=== PATIENT | male | born 1940 | race Caucasian/White ===

== ENCOUNTER → 2018-10-06 | Outpatient (CLI) | payer MEDICARE ==
--- NOTE | 2018-10-06 14:43 | XR ---
EXAMINATION TYPE: XR KUB DATE OF EXAM: 10/06/2018 HISTORY: Pain Comparison: 01/22/2016 Single KUB is submitted for interpretation. Findings: Right renal calculi: None Visualized. Overlying bowel content limits evaluation. Right ureteral calculi: None Visualized. Left renal calculi: Partial staghorn calculus lower pole left kidney measures 11.4 x 2.9 cm. Overlyi ng bowel content limits evaluation. Left ureteral calculi: None Visualized. Pelvic calcifications: None Visualized. Bowel gas pattern is unremarkable. No free air. No mass effects. IMPRESSION: 1. Large partial staghorn calculus lower pole left kidney measures 11.4 x 2.9 cm. Overall no signific ant change when compared to prior study.
--- NOTE | 2018-10-06 16:38 | US ---
EXAMINATION TYPE: US kidneys/renal and bladder DATE OF EXAM: 10/06/2018 COMPARISON: 01/08/2016 CLINICAL HISTORY: N20 Calculus of kidney. Post lithotripsy for left renal stone(s). EXAM MEASUREMENTS: Right Kidney: 10.1 x 6.3 x 4.9 cm Left Kidney: 11.2 x 5.8 x 5.9 cm Post Void Residual Volume: 43.9 mL Right Kidney: shadowing stone area in lower pole = 0.8 x 0.6 x .0.4cm; lateral simple cortical cyst seen = 1.5 x 1.4 x 1.1cm Left Kidney: multiple shadowing stones medial, mid and lower pole with largest in lower pole =1.7 x 0 .8 x 0.4cm. Bladder: possible shadowing stone at right ureteral opening as hyperechoic focus seen = 0.6 x 0.5 x 0 .4cm on images 14,15, 16, 17, etc, and smaller left posterior bladder at twinkle artifacts. Bilateral Jets seen: yes, and prominent prostate is seen Normal Post Void Residual: yes, as is less than 50.0ml. Bilateral ureteral jets are seen. IMPRESSION: 1. Prostate is slightly prominent with impression on the urinary bladder. 2. Suspected urinary bladder calcification. 3. Bilateral shadowing renal stones without obstruction
== END | disposition home or self-care (01) ==
LOC: RADUSWWP 12:56
PROVIDERS: ATTEND Urology
DX: N20.0 Calculus of kidney (principal)
CPT/HCPCS: 74018; 76770

== ENCOUNTER → 2018-10-30 | Outpatient (CLI) | payer MEDICARE ==
--- NOTE | 2018-10-30 11:44 | XR ---
Abdomen HISTORY: Left renal calculus Frontal view the abdomen on 2 images correlated prior exam 10/06/2017 Multiple calcifications are superimposed over the lower pole left kidney as on prior exam. Calcificat ion also present over the midpole the right kidney suspected, there is overlying bowel gas may obscur e detail. Calcifications in the left hemipelvis are stable. Degenerative disc changes in the visualiz ed spine. IMPRESSION: Bilateral nephrolithiasis shows a similar appearance.
== END ==
LOC: RADXRMAIN 10:52
PROVIDERS: ATTEND Urology
DX: N20.0 Calculus of kidney (principal)
CPT/HCPCS: 74018

== ENCOUNTER 2018-11-06 05:56 | Day surgery (SDC) | payer MEDICARE ==
[2018-11-02 13:18] VITALS: BMI 25.8
--- NOTE | 2018-11-02 19:03 | P.GSHP ---
History of Present Illness H&P Date: 11/02/18 Chief Complaint: Left flank pain The patient is a 78-year-old white male with a history of urolithiasis. He underwent right ESWL in 2016, which was successful. He now presents with left flank discomfort, and a KUB x-ray shows an 11 x 29 mm left lower pole renal calculus. Alternative treatment options were reviewed, and he chose to undergo ESWL. This was performed on 10/23/2018. The calculus fragmented incompletely, and he now comes for repeat ESWL. - Constitutional Constitutional: Denies chills, Denies fever - Gastrointestinal Gastrointestinal: Denies nausea, Denies vomiting - Genitourinary (Female) Genitourinary: Reports kidney stones, Denies hematuria Past Medical History Past Medical History: Cancer, Eye Disorder, Hearing Disorder / Deafness, Hyperlipidemia, Hypertension, Osteoarthritis (OA), Skin Disorder Additional Past Medical History / Comment(s): MACULAR DEGENERATION. KIDNEY STONE CURRENTLY. HX SKIN CA. HX BRADYCARDIA, HAS PACEMAKER. History of Any Multi-Drug Resistant Organisms: None Reported Past Surgical History: Joint Replacement, Pacemaker Additional Past Surgical History / Comment(s): TOTAL RT KNEE. LITHOTRIPSY. BIOTRONIC PACEMAKER, 2001, 2010. Past Anesthesia/Blood Transfusion Reactions: No Reported Reaction Type of Cardiac Device: Permanent Pacemaker Device Placement Date:: 2010 Smoking Status: Former smoker - Past Family History Father Brother(s) Family Medical History: Cancer Brother(s) Additional Family Medical History / Comment(s): HX BLOOD CLOT, UNSURE WHERE IT WAS Medications and Allergies Home Medications Medication Instructions Recorded Confirmed Type Aspirin 325 mg PO DAILY 11/02/18 11/02/18 History Celecoxib [CeleBREX] 200 mg PO DAILY 11/02/18 11/02/18 History Ezetimibe [Zetia] 5 mg PO DAILY 11/02/18 11/02/18 History Latanoprost/Pf [Latanoprost 0.005% 1 drop BOTH EYES HS 11/02/18 11/02/18 History Eye Drop] Lisinopril [Zestril] 20 mg PO DAILY 11/02/18 11/02/18 History Magnesium Oxide [Mag-Ox] 400 mg PO DAILY 11/02/18 11/02/18 History [place]-3 Fatty Acids/Fish Oil [Fish 1 each PO DAILY 11/02/18 11/02/18 History Oil 1,000 mg Softgel] Propranolol HCl [Inderal LA] 120 mg PO DAILY 11/02/18 11/02/18 History Simvastatin [Zocor] 20 mg PO HS 11/02/18 11/02/18 History Timolol [Betimol 0.5% Ophth Soln] 1 drop BOTH EYES BID 11/02/18 11/02/18 History Vit C/E/Zn/Coppr/Lutein/Zeaxan 1 each PO BID 11/02/18 11/02/18 History [Preservision Areds 2 Softgel] Allergies Allergy/AdvReac Type Severity Reaction Status Date / Time Penicillins Allergy Rash/Hives Verified 11/02/18 12:42 Surgical - Exam - General well developed, well nourished, no distress - Neck no masses, trachea midline - Respiratory normal respiratory effort - Abdomen Abdomen: soft, non tender, no guarding, no rigid, no rebound - Genitourinary normal penis with no external lesions, testicles non-tender - Psychiatric oriented to time, oriented to person, oriented to place, speech is normal, memory intact Assessment and Plan (1) Calculus of kidney Status: Acute Code(s): N20.0 - CALCULUS OF KIDNEY SNOMED Code(s): 50767138 Plan: Left ESWL, to be performed by Dr. Gaines. The patient understands the procedure well, including risks which include anesthesia, hematuria, renal contusion, perinephric hematoma, treatment failure, incomplete fragmentation, and Steinstrasse. He also understands the possible need for additional treatment.
[~2018-11-06 05:56] MED LIST: DEXAMETHASONE SOD PHOSPHATE 10 MG/ML 1 ML VIAL IV ONE; LACTATED RINGERS 1,000 ML IV SCH; LIDOCAINE 1% 20 ML VIAL (10MG/ML) FOR IV START INTRADERMA PRN; MIDAZOLAM (PF) 2 MG/2 ML VIAL IV PRN; ONDANSETRON 4 MG/2 ML VIAL IVP ONE; Pre Op ABX Message 1 EACH MISC MISCELLANE ONE; fentaNYL (PF) 50 MCG/ML 2 ML AMP IV PRN
[2018-11-06 06:28] VITALS: RESP 16; TEMP 98
--- NOTE | 2018-11-06 07:26 | XR ---
EXAMINATION TYPE: XR KUB DATE OF EXAM: 11/06/2018 CLINICAL DATA: 78-year-old male preop left-sided lithotripsy for renal calculus, [facility] COMPARISON: 10/30/2018 FINDINGS: Nonobstructive bowel gas pattern. Phlebolith in the left-sided pelvis. Numerous left-sided renal calc mando are present measuring up to 1.2 and 0.9 cm, total aggregate dimension approaching 4.5 x 2.3 cm. D egenerative changes lower lumbar spine. IMPRESSION: Numerous left-sided renal calculi, total aggregate dimension approaching 4.5 x 2.3 cm. Individual rekha culi measuring up to 1.2 cm.
[2018-11-06] MEDS ORDERED: PROPOFOL 10 MG/ML 20 ML VIAL IV ONE (07:34)
[2018-11-06] MEDS ORDERED: MIDAZOLAM 2 MG/2 ML VIAL ONE (07:34)
[2018-11-06] MEDS ORDERED: KETAMINE 10 MG/ML 20 ML VIAL ONE (07:34)
--- NOTE | 2018-11-06 08:29 | P.OP ---
Date of Procedure: 11/06/18 Preoperative Diagnosis: Right renal stones status post shockwave lithotripsy Postoperative Diagnosis: Same Procedure(s) Performed: ESWL left 2500 shocks at energy level IV Anesthesia: MAC Surgeon: Irving Gaines Estimated Blood Loss (ml): 0 Pathology: none sent Condition: stable Disposition: PACU Indications for Procedure: The patient is 78. He had a very large 12 x 29 mm left renal stone that elected to treat with staged shockwave lithotripsy. He had shockwave lithotripsy a few weeks back to break the stone. He still has a fair amount of debris in his left kidney. He has proximal 1.2 cm in the renal pelvis extending up into an upper and lower pole infundibulum. He also has fragments in the left lower pole. He comes for shockwave lithotripsy Description of Procedure: The patient is brought to the operating suite. He's placed on the lithotripsy table in a supine position. IV sedation is administered. A magnet was placed over his pacemaker. The left renal pelvic and upper and lower pole infundibular stones are seen. I use 1500 shocks at energy level IV are administered to fracture the renal pelvic and lower pole infundibular stone. I then moved to the upper pole infundibular stone and administered another thousand shocks to that. I did not treat the lower pole calyceal fragments as I wish to clear the renal pelvis and upper and lower pole major infundibuli to control this stone. The patient tolerated the procedure well be discharged home upon recovery. He probably need another shockwave at a later date.
[2018-11-06 09:08] VITALS: PULSE 57
[2018-11-06 09:38] VITALS: BP 122/81
== END 2018-11-06 09:49 | disposition home or self-care (01) ==
LOC: ORWHC2ENDO 05:56
PROVIDERS: ATTEND Urology
DX: N20.0 Calculus of kidney (principal); H91.90 Unspecified hearing loss, unspecified ear; E78.5 Hyperlipidemia, unspecified; I10 Essential (primary) hypertension; M19.90 Unspecified osteoarthritis, unspecified site; H35.30 Unspecified macular degeneration; H40.9 Unspecified glaucoma; Z95.0 Presence of cardiac pacemaker; Z79.82 Long term (current) use of aspirin; Z79.899 Other long term (current) drug therapy; Z88.0 Allergy status to penicillin; Z85.828 Personal history of other malignant neoplasm of skin; Z87.891 Personal history of nicotine dependence
CPT/HCPCS: 74018; 50590; J2250; J2704

== ENCOUNTER → 2018-11-13 | Outpatient (CLI) | payer MEDICARE ==
--- NOTE | 2018-11-13 09:37 | XR ---
EXAMINATION TYPE: XR KUB DATE OF EXAM: 11/13/2018 COMPARISON: 11/06/2018 HISTORY: Vein renal calculi TECHNIQUE: One view abdominal series FINDINGS: The osseous structures are intact. The bowel gas pattern is nonspecific. Hypertrophic change of the hips and degenerative change of the spine noted. Right kidney: There is a stable 4 mm mid upper pole right renal calculus. Left kidney: There is a conglomerate large calcification involving the calyces and infundibulum of th e lower pole the left kidney measures a maximal dimension of 1.8 cm. There are at least 10 additional calcification seen in the region largest which measures 10 mm. 2 calcifications in the upper left pe lvis are stable. IMPRESSION: 1. Bilateral nephrolithiasis is similar in appearance to the prior exam.
== END | disposition home or self-care (01) ==
LOC: RADXRMAIN 08:45
PROVIDERS: ATTEND Family Medicine
DX: N20.0 Calculus of kidney (principal)
CPT/HCPCS: 74018

== ENCOUNTER → 2018-11-25 | Outpatient (CLI) | payer MEDICARE ==
--- NOTE | 2018-11-25 14:35 | XR ---
EXAMINATION TYPE: XR KUB DATE OF EXAM: 11/25/2018 1:37 PM CLINICAL HISTORY: Left-sided nephrolithiasis with recent lithotripsy TECHNIQUE: Single supine KUB image of the abdomen is obtained. COMPARISON: 11/13/2018. FINDINGS: There are bilateral renal calculi, appearing stable and on the left. Right renal calculus m easures approximately 5 mm. Numerous left renal calculi appear relatively similar to the prior of 10/21 with fragmentation of the most superior renal calculi. 2 punctate densities within the left he mipelvis are unchanged from the prior. There is mild levoscoliosis and moderate degenerative changes of the femoral acetabular joints as well as the lumbosacral junction. IMPRESSION: Persistent bilateral nephrolithiasis with new fragmentation of the most superior left donal al calculi. Overall staghorn appearance of the left renal calculi.
== END | disposition home or self-care (01) ==
LOC: RADXRMAIN 13:20
PROVIDERS: ATTEND Urology
DX: N20.0 Calculus of kidney (principal)
CPT/HCPCS: 74018

== ENCOUNTER → 2018-12-30 | Outpatient (CLI) | payer MEDICARE ==
--- NOTE | 2018-12-30 13:52 | XR ---
EXAMINATION TYPE: XR KUB , ONE VIEW DATE OF EXAM ORDERED: 12/30/2018 HISTORY: N20.0. COMPARISON: Previous study dated 11/25/2018. FINDINGS: There are bilateral renal calculi. Those on the left are largely unchanged. On the right d istal appears to have moved from the upper pole of the lower pole. There are 2 calcifications overlyi ng the region of the distal left ureter. These however are unchanged from previous. IMPRESSION: 1. BILATERAL NEPHROLITHIASIS. 2. I COULD NOT EXCLUDE, STABLE, DISTAL LEFT URETERIC CALCULI.
== END | disposition home or self-care (01) ==
LOC: RADXRMAIN 13:24
PROVIDERS: ATTEND Urology
DX: N20.0 Calculus of kidney (principal)
CPT/HCPCS: 74018

== ENCOUNTER → 2019-01-27 | Outpatient (CLI) | payer MEDICARE ==
--- NOTE | 2019-01-27 20:16 | XR ---
EXAMINATION TYPE: XR KUB DATE OF EXAM: 01/27/2019 CLINICAL DATA: 79-year-old male follow-up status post ESWL on the left, last Tuesday, [facility] COMPARISON: 12/30/2018 FINDINGS: Moderate stool in the right-sided the abdomen. Nonobstructive bowel gas pattern. Redemonstrated bilateral nephrolithiasis with 2 calculi on the right measuring up to 6 mm. Calcifications in the left kidney are redemonstrated. In the midpole, the cluster of small calculi no w measures 8 mm versus 1.4 cm, previously. A few tiny calculi previously located more laterally in th e midpole are now more centrally located. A cluster of calcifications in the lower pole remain appro ximately 1.5 cm. There is a new 3 mm calcification in the expected location of the left UVJ. Left-sided vascular calci fications in the pelvis. IMPRESSION: 1. Redemonstrated bilateral nephrolithiasis. A group of calcifications in the left midpole previously measuring 1.4 cm now measures 8 mm. There is also a new 3 mm calcification in the expected left UVJ likely passage of a fragmented stone after patient's ESWL. 2. A small midpole cluster more laterally located is now more centrally located. 3. A third group of calcifications at the left lower pole with aggregate dimension of 1.5 cm is relat ively similar.
== END ==
LOC: RADXRMAIN 13:46
PROVIDERS: ATTEND Urology
DX: N28.89 Other specified disorders of kidney and ureter (principal); N20.0 Calculus of kidney
CPT/HCPCS: 74018

== ENCOUNTER → 2019-03-01 | Outpatient (CLI) | payer MEDICARE ==
--- NOTE | 2019-03-01 10:36 | XR ---
KUB HISTORY: Calculus of right kidney, history of lithotripsy Frontal KUB and 2 images correlated to prior exam 01/27/2019 Multiple fragmented calculi are present overlying the left kidney and possibly left renal pelvis. The re are likely at least 8 calculi present, the largest overlying the left renal pelvis measures approx imately 4 to 5 mm, lower pole calculus measures 5 mm. Lower pole calculus overlying the right kidney is stable, smaller adjacent calculus may measure only approximately 1 to 2 mm. Upper pole not well se en secondary to overlying bowel gas. Round calcification also present superimposed over the lower xochitl e the left kidney which is not felt to be within the kidney. There are calcifications in the left hem ipelvis which may be vascular. The previous identified calcification at the level of the ureterovesic al orifice in the left is no longer seen. No significant interval change. IMPRESSION: Post lithotripsy findings as described. Bilateral nephrolithiasis.
== END | disposition home or self-care (01) ==
LOC: RADXRMAIN 07:40
PROVIDERS: ATTEND Urology
DX: N20.0 Calculus of kidney (principal); Z98.890 Other specified postprocedural states
CPT/HCPCS: 74018

== ENCOUNTER → 2019-04-09 | Outpatient (CLI) | payer MEDICARE ==
--- NOTE | 2019-04-09 18:11 | XR ---
Abdomen HISTORY: Left-sided lithotripsy, calculus of kidney Frontal view of the abdomen submitted on 2 images and correlated to KUB 03/01/2019 Multiple fragments are present at the mid and lower pole of the left kidney. Calcification seen overl niki the renal pelvis on prior exam is no longer evident. Calcification overlying the lower pole the right kidney again is present. Calcifications in the left hemipelvis are stable. There is an underlyi ng scoliosis. Round calcification overlying the left 12th rib is again noted. IMPRESSION: Single calcification overlying the renal pelvis on prior exam is not seen. Multiple fragm ents within the left kidney, calcification of the right kidney are again noted as described. Stable c alcifications left hemipelvis.
== END | disposition home or self-care (01) ==
LOC: RADXRMAIN 13:17
PROVIDERS: ATTEND Urology
DX: N20.0 Calculus of kidney (principal)
CPT/HCPCS: 74018

== ENCOUNTER 2019-05-05 09:21 | Emergency (ER) | payer MEDICARE ==
[2019-05-05 09:30] VITALS: RESP 18; TEMP 98
[2019-05-05] MEDS ORDERED: SODIUM CHLORIDE 0.9% 500 ML 500 ML IV STA ×2 (09:48→11:01)
--- NOTE | 2019-05-05 09:52 | ED ---
General Adult HPI - General Chief complaint: Abdominal Pain Stated complaint: Back/side pain Time Seen by Provider: 05/05/19 09:32 Source: patient, RN notes reviewed, old records reviewed Mode of arrival: ambulatory Limitations: no limitations - History of Present Illness Initial comments: 79-year-old male patient presents to ED wit hCC of right flank pain. Patient reports has been ongoing for approximately 3 days. Patient denies any chest pain, shortness of breath. Patient wants to ensure that this is a kidney stone and not something else. Denies other complaints. Systemic: Pt denies fatigue, fever/chills, rash. Pt denies weakness, night sweat s, weight loss. Neuro: Pt denies headache, visual disturbances, syncope or pre-syncope. HEENT: Pt denies ocular discharge or irritation, otalgia, rhinorrhea, pharyngitis or notable lymphadenopathy. Cardiopulmonary: Pt denies chest pain, SOB, heart palpitations, dyspnea on exertion. Abdominal/GI: Pt denies abdominal pain, n/v/d. : Pt denies dysuria, burning w/ urination, frequency/urgency. Denies new onset urinary or bowel incontinence. MSK: Pt denies myalgia, loss of strength or function in extremities. Neuro: Pt denies new onset weakness, paresthesias. - Related Data Home Medications Medication Instructions Recorded Confirmed Aspirin 325 mg PO DAILY 11/02/18 05/05/19 Ezetimibe [Zetia] 5 mg PO HS 11/02/18 05/05/19 Latanoprost/Pf [Latanoprost 0.005% 1 drop BOTH EYES HS 11/02/18 05/05/19 Eye Drop] Lisinopril [Zestril] 20 mg PO HS 11/02/18 05/05/19 [place]-3 Fatty Acids/Fish Oil [Fish 1 cap PO HS 11/02/18 05/05/19 Oil 1,000 mg Softgel] Propranolol HCl [Inderal LA] 120 mg PO DAILY 11/02/18 05/05/19 Simvastatin [Zocor] 20 mg PO HS 11/02/18 05/05/19 Timolol [Betimol 0.5% Ophth Soln] 1 drop BOTH EYES BID 11/02/18 05/05/19 Vit C/E/Zn/Coppr/Lutein/Zeaxan 1 cap PO BID 11/02/18 05/05/19 [Preservision Areds 2 Softgel] Multivitamins, Thera [Multivitamin 1 tab PO DAILY 05/05/19 05/05/19 (formulary)] Tamsulosin [Flomax] 0.4 mg PO HS 05/05/19 05/05/19 Previous Rx's Medication Instructions Recorded Tamsulosin [Flomax] 0.4 mg PO DAILY #10 cap 05/05/19 Allergies Allergy/AdvReac Type Severity Reaction Status Date / Time Penicillins Allergy Rash/Hives Verified 05/05/19 09:44 Review of Systems ROS Statement: Those systems with pertinent positive or pertinent negative responses have been documented in the HPI. ROS Other: All systems not noted in ROS Statement are negative. Past Medical History Past Medical History: Cancer, Eye Disorder, Hearing Disorder / Deafness, Hyperlipidemia, Hypertension, Osteoarthritis (OA), Skin Disorder Additional Past Medical History / Comment(s): MACULAR DEGENERATION. KIDNEY STONE CURRENTLY. HX SKIN CA. HX BRADYCARDIA, HAS PACEMAKER. History of Any Multi-Drug Resistant Organisms: None Reported Past Surgical History: Joint Replacement, Pacemaker Additional Past Surgical History / Comment(s): TOTAL RT KNEE. LITHOTRIPSY. BIOTRONIC PACEMAKER, 2001, 2010. Past Anesthesia/Blood Transfusion Reactions: No Reported Reaction Type of Cardiac Device: Permanent Pacemaker Device Placement Date:: 2010 Past Psychological History: No Psychological Hx Reported Smoking Status: Former smoker Past Alcohol Use History: None Reported Past Drug Use History: None Reported - Past Family History Father Brother(s) Family Medical History: Cancer Brother(s) Additional Family Medical History / Comment(s): HX BLOOD CLOT, UNSURE WHERE IT WAS General Exam - General Exam Comments Initial Comments: Constitutional: NAD, AOX3, Pt has pleasant affect. HEENT: NC/AT, trachea midline, neck supple, no lymphadenopathy. Posterior pharynx non erythematous, without exudates. External ears appear normal, without discharge. Mucous membranes moist. Eyes PERRLA, EOM intact. There is no scleral icterus. No pallor noted. Cardiopulmonary: RRR, no murmurs, rubs or gallops, no JVD noted. Lungs CTAB in anterior and posterior alves. No peripheral edema. Abdominal exam: Abdomen soft and non-distended. Abdomen non-tender to palpation in all 4 quadrants. Bowel sounds active in LLQ. No hepatosplenomegaly. No ecchymosis. No CVA tenderness. Neuro: CN II-XII grossly intact. No nuchal rigidity. No raccon eyes, no messina sign, no hemotympanum. No cervical spinal tenderness. MSK: No posterior calf tenderness bilaterally, homans sign negative bilaterally. Posterior tibialis and radial pulse +2 bilaterally. Sensation intact in upper and lower extremities. Full active ROM in upper and lower extremities, 5/5 stregnth. Limitations: no limitations Course Vital Signs 05/05/19 09:27 Temperature 98 F Pulse Rate 74 Respiratory 18 Rate Blood Pressure 154/84 O2 Sat by Pulse 95 Oximetry Medical Decision Making - Medical Decision Making 79-year-old male patient presents to ED wit hCC of right flank pain. Patient reports has been ongoing for approximately 3 days. Patient denies any chest pain, shortness of breath. Patient wants to ensure that this is a kidney stone and not something else. Denies other complaints. Patient vital signs stable, afebrile. Physical exam did not acute pathology. Abdominal CT is revealed mild cytosis of 12.1. BUN/creatinine moderately elevated. UA displayed 36 red blood cells. Patient administered [address] abdomen and pelvis displayed a 6.5 mm calculi in the proximal right ureter causing moderate right- sided hydronephrosis. Patient will be discharged with Flomax, will have close outpatient follow-up with urology, will call today. Will follow up with primary care provider for continued monitoring of renal function. Case discussed with Dr. Menard. - Lab Data Result diagrams: 05/05/19 09:45 05/05/19 09:45 Lab Results 05/05/19 05/05/19 05/05/19 Range/Units 09:45 09:45 09:45 WBC 12.1 H (3.8-10.6) k/uL RBC 4.77 (4.30-5.90) m/uL Hgb 14.7 (13.0-17.5) gm/dL Hct 44.2 (39.0-53.0) % MCV 92.6 (80.0-100.0) fL MCH 30.7 (25.0-35.0) pg MCHC 33.2 (31.0-37.0) g/dL RDW 13.0 (11.5-15.5) % Plt Count 152 (150-450) k/uL Neutrophils % 80 % Lymphocytes % 10 % Monocytes % 6 % Eosinophils % 2 % Basophils % 0 % Neutrophils # 9.7 H (1.3-7.7) k/uL Lymphocytes # 1.2 (1.0-4.8) k/uL Monocytes # 0.8 (0-1.0) k/uL Eosinophils # 0.3 (0-0.7) k/uL Basophils # 0.0 (0-0.2) k/uL Sodium 140 (137-145) mmol/L Potassium 4.7 (3.5-5.1) mmol/L Chloride 108 H (98-107) mmol/L Carbon Dioxide 22 (22-30) mmol/L Anion Gap 10 mmol/L BUN 24 H (9-20) mg/dL Creatinine 1.71 H (0.66-1.25) mg/dL Est GFR (CKD-EPI)AfAm 44 (>60 ml/min/1.73 sqM) Est GFR (CKD-EPI)NonAf 38 (>60 ml/min/1.73 sqM) Glucose 118 H (74-99) mg/dL Plasma Lactic Acid [place] 1.0 (0.7-2.0) mmol/L Calcium 9.1 (8.4-10.2) mg/dL Total Bilirubin 0.9 (0.2-1.3) mg/dL AST 26 (17-59) U/L ALT 20 L (21-72) U/L Alkaline Phosphatase 73 (38-126) U/L Total Protein 7.1 (6.3-8.2) g/dL Albumin 4.0 (3.5-5.0) g/dL Urine Color Urine Appearance (Clear) Urine pH (5.0-8.0) Ur Specific [place] (1.001-1.035) Urine Protein (Negative) Urine Glucose (UA) (Negative) Urine Ketones (Negative) Urine Blood (Negative) Urine Nitrite (Negative) Urine Bilirubin (Negative) Urine Urobilinogen (<2.0) mg/dL Ur Leukocyte Esterase (Negative) Urine RBC (0-5) /hpf Urine WBC (0-5) /hpf Calcium Oxalate Crystal (None) /hpf Urine Mucus (None) /hpf 05/05/19 Range/Units 09:45 WBC (3.8-10.6) k/uL RBC (4.30-5.90) m/uL Hgb (13.0-17.5) gm/dL Hct (39.0-53.0) % MCV (80.0-100.0) fL MCH (25.0-35.0) pg MCHC (31.0-37.0) g/dL RDW (11.5-15.5) % Plt Count (150-450) k/uL Neutrophils % % Lymphocytes % % Monocytes % % Eosinophils % % Basophils % % Neutrophils # (1.3-7.7) k/uL Lymphocytes # (1.0-4.8) k/uL Monocytes # (0-1.0) k/uL Eosinophils # (0-0.7) k/uL Basophils # (0-0.2) k/uL Sodium (137-145) mmol/L Potassium (3.5-5.1) mmol/L Chloride (98-107) mmol/L Carbon Dioxide (22-30) mmol/L Anion Gap mmol/L BUN (9-20) mg/dL Creatinine (0.66-1.25) mg/dL Est GFR (CKD-EPI)AfAm (>60 ml/min/1.73 sqM) Est GFR (CKD-EPI)NonAf (>60 ml/min/1.73 sqM) Glucose (74-99) mg/dL Plasma Lactic Acid [place] (0.7-2.0) mmol/L Calcium (8.4-10.2) mg/dL Total Bilirubin (0.2-1.3) mg/dL AST (17-59) U/L ALT (21-72) U/L Alkaline Phosphatase (38-126) U/L Total Protein (6.3-8.2) g/dL Albumin (3.5-5.0) g/dL Urine Color Light Yellow Urine Appearance Clear (Clear) Urine pH 7.0 (5.0-8.0) Ur Specific [place] 1.010 (1.001-1.035) Urine Protein Negative (Negative) Urine Glucose (UA) Negative (Negative) Urine Ketones Negative (Negative) Urine Blood Small H (Negative) Urine Nitrite Negative (Negative) Urine Bilirubin Negative (Negative) Urine Urobilinogen <2.0 (<2.0) mg/dL Ur Leukocyte Esterase Negative (Negative) Urine RBC 36 H (0-5) /hpf Urine WBC 1 (0-5) /hpf Calcium Oxalate Crystal Occasional H (None) /hpf Urine Mucus Rare H (None) /hpf Disposition Clinical Impression: Ureteral calculi Disposition: HOME SELF-CARE Condition: Stable Instructions (If sedation given, give patient instructions): Kidney Stones (ED) Additional Instructions: Patient to adhere to previously discussed treatment plan and will take medication(s) as directed. Patient to follow up with PCP in 1-2 days. Patient to return to ED if symptoms do not improve. Follow-up with urologist today. Take medication as directed. Return to ER immediately condition worsens. Prescriptions: Tamsulosin [Flomax] 0.4 mg PO DAILY #10 cap Is patient prescribed a controlled substance at d/c from ED?: No Referrals: Mookie Ferrari MD [Primary Care Provider] - 1-2 days Fausto Pompa MD [STAFF PHYSICIAN] - 1-2 days
[2019-05-05 10:12] LABS: Basophils % (A) 0 %; Eosinophils # (A) 0.3 k/uL (0-0.7); Eosinophils % (A) 2 %; HCT 44.2 % (39.0-53.0); HGB 14.7 gm/dL (13.0-17.5); Lymphocytes # (A) 1.2 k/uL (1.0-4.8); Lymphocytes % (A) 10 %; MCH 30.7 pg (25.0-35.0); MCHC 33.2 g/dL (31.0-37.0); MCV 92.6 fL (80.0-100.0); Mean Platelet Volume 6.5; Monocytes # (A) 0.8 k/uL (0-1.0); Monocytes % (A) 6 %; Neutrophils # (A) 9.7 k/uL (1.3-7.7); Neutrophils % (A) 80 %; Platelet Count 152 k/uL (150-450); RBC 4.77 m/uL (4.30-5.90); WBC 12.1 k/uL (3.8-10.6)
[2019-05-05 10:21] LABS: Calcium 9.1 mg/dL (8.4-10.2); Potassium 4.7 mmol/L (3.5-5.1); Total Bilirubin 0.9 mg/dL (0.2-1.3); Total Protein 7.1 g/dL (6.3-8.2)
[2019-05-05 10:31] LABS: Appearance,Urine Clear (Clear); Bilirubin,Urine Negative (Negative); Blood,Urine Small (Negative); Calcium Oxalate Crystals,Urine Occasional /hpf; Color,Urine Light Yellow; Glucose,Urine (UA) Negative (Negative); Ketones,Urine Negative (Negative); Leukocyte Esterase,Urine Negative (Negative); Mucus,Urine Rare /hpf; Nitrite,Urine Negative (Negative); Protein,Urine Negative (Negative); RBC,Urine 36 /hpf (0-5); Urobilinogen,Urine <2.0 mg/dL (<2.0); WBC,Urine 1 /hpf (0-5)
--- NOTE | 2019-05-05 10:52 | CT ---
EXAMINATION TYPE: CT abdomen pelvis wo con DATE OF EXAM: 05/05/2019 COMPARISON: NONE HISTORY: Right sided back pain CT DLP: 580.2 mGycm Automated exposure control for dose reduction was used. FINDINGS: Visualized portions of the lungs are clear. There is no pleural or pericardial fluid. The h eart is not enlarged. There is a bipolar pacemaker in place. Within the abdomen, the liver, spleen and gallbladder are normal. Both adrenal glands are normal. There are calcifications associated with the left kidney. These likely represent nonobstructing nephr olithiasis. The largest measures 5.8 mm. On the right there is evidence of hydronephrosis and hydroureter proximally. There is a 6.5 mm calcul us in the proximal right ureter. The pancreas is unremarkable. There is moderate atheromatous calcification of the visualized arterial tree. There is no significant retroperitoneal, iliac or inguinal adenopathy. The bladder is nondistended. There is some calcification within the prostate gland. There is no significant diverticular change and there is no radiographic evidence of diverticulitis. The appendix is not visualized with certainty. Small bowel loops are normal. There is no free fluid and no free air identified. There is degenerative disc disease with vacuum phenomena present at L4-5 and L5-S1. This hypertrophic spondylosis within the lower dorsal spine. IMPRESSION: 1. 6.5 MM CALCULUS IN THE PROXIMAL RIGHT URETER CAUSING MODERATE RIGHT-SIDED HYDRONEPHROSIS. 2. NONOBSTRUCTING LEFT-SIDED NEPHROLITHIASIS. 3. DEGENERATIVE CHANGE WITHIN THE SPINE.
[2019-05-05 11:40] VITALS: BP 107/82; PULSE 63
== END 2019-05-05 12:25 | disposition home or self-care (01) ==
LOC: EC 09:21
DX: N13.2 Hydronephrosis with renal and ureteral calculous obstruction (principal); I10 Essential (primary) hypertension; E78.5 Hyperlipidemia, unspecified; Z79.82 Long term (current) use of aspirin; Z79.899 Other long term (current) drug therapy; Z88.0 Allergy status to penicillin; Z87.891 Personal history of nicotine dependence; Z95.0 Presence of cardiac pacemaker; Z96.651 Presence of right artificial knee joint; Z85.828 Personal history of other malignant neoplasm of skin
CPT/HCPCS: 36415; 74176; 80053; 81001; 83605; 85025; 96360; 96361; 99284

== ENCOUNTER 2019-05-11 12:56 | Day surgery (SDC) | payer MEDICARE ==
[2019-05-07 15:01] VITALS: BMI 25.8
--- NOTE | 2019-05-08 20:23 | P.GSHP ---
History of Present Illness H&P Date: 05/08/19 The patient is a 79-year-old white male with a history of urolithiasis. He underwent right ESWL in 2016, which was successful. He presented early this year with left flank discomfort, and a KUB x-ray showed an 11 x 29 mm left lower pole renal calculus. Alternative treatment options were reviewed, and he chose to undergo ESWL. This was performed on 3 occasions. The calculus fragmented incompletely, and he has some LLP residual calculus fragments. He now presents with right renal colic and was found to have a 6.5 mm right proximal ureteral calculus. He now comes for bilateral ureteroscopy with Holmium laser lithotripsy and stent insertion. - Constitutional Constitutional: Denies chills, Denies fever - Gastrointestinal Gastrointestinal: Reports nausea, Denies vomiting - Genitourinary (Female) Genitourinary: Reports flank pain, Reports kidney stones, Denies hematuria Past Medical History Past Medical History: Cancer, Eye Disorder, Hearing Disorder / Deafness, Hyperlipidemia, Hypertension, Osteoarthritis (OA) Additional Past Medical History / Comment(s): BILATERAL MACULAR DEGENERATION. KIDNEY STONE CURRENTLY AND HX OF X2. HX SKIN CA. HX BRADYCARDIA, HAS PACEMAKER. History of Any Multi-Drug Resistant Organisms: None Reported Past Surgical History: Back Surgery, Joint Replacement, Pacemaker Additional Past Surgical History / Comment(s): TOTAL RIGHT KNEE. LITHOTRIPSY. BIOTRONIC PACEMAKER 2001, 2010. Laminectomy X2. Bilateral knee surgery, skin cancer removed. Past Anesthesia/Blood Transfusion Reactions: No Reported Reaction Type of Cardiac Device: Permanent Pacemaker Device Placement Date:: 2010 Past Psychological History: No Psychological Hx Reported Smoking Status: Former smoker Past Alcohol Use History: None Reported Additional Past Alcohol Use History / Comment(s): SMOKED 15 YEARS, 2 1/2 PPD, QUIT in 1979. Past Drug Use History: None Reported - Past Family History Father Brother(s) Family Medical History: Cancer Brother(s) Additional Family Medical History / Comment(s): HX BLOOD CLOT, UNSURE WHERE IT WAS. Medications and Allergies Home Medications Medication Instructions Recorded Confirmed Type Aspirin 325 mg PO DAILY 11/02/18 05/07/19 History Ezetimibe [Zetia] 5 mg PO HS 11/02/18 05/07/19 History Latanoprost/Pf [Latanoprost 0.005% 1 drop BOTH EYES HS 11/02/18 05/07/19 History Eye Drop] Lisinopril [Zestril] 20 mg PO HS 11/02/18 05/07/19 History Hope-3 Fatty Acids/Fish Oil [Fish 1 cap PO HS 11/02/18 05/07/19 History Oil 1,000 mg Softgel] Propranolol HCl [Inderal LA] 120 mg PO DAILY 11/02/18 05/07/19 History Simvastatin [Zocor] 20 mg PO HS 11/02/18 05/07/19 History Timolol [Betimol 0.5% Ophth Soln] 1 drop BOTH EYES BID 11/02/18 05/07/19 History Vit C/E/Zn/Coppr/Lutein/Zeaxan 1 cap PO BID 11/02/18 05/07/19 History [Preservision Areds 2 Softgel] Multivitamins, Thera [Multivitamin 1 tab PO DAILY 05/05/19 05/07/19 History (formulary)] Tamsulosin [Flomax] 0.4 mg PO BID 05/07/19 05/07/19 History Allergies Allergy/AdvReac Type Severity Reaction Status Date / Time Penicillins Allergy Rash/Hives Verified 05/07/19 15:04 Surgical - Exam - General well developed, well nourished, no distress - Neck no masses, trachea midline - Respiratory normal respiratory effort - Abdomen Abdomen: soft, non tender, no guarding, no rigid, no rebound - Genitourinary normal penis with no external lesions, testicles non-tender - Psychiatric oriented to time, oriented to person, oriented to place, speech is normal, memory intact Assessment and Plan (1) Ureteral calculi Status: Acute Code(s): N20.1 - CALCULUS OF URETER SNOMED Code(s): 44375719 (2) Calculus of kidney Status: Acute Code(s): N20.0 - CALCULUS OF KIDNEY SNOMED Code(s): 62885988 Plan: Cystoscopy, bilateral ureteroscopy with Holmium laser lithotripsy, bilateral ureteral stent insertion. Risks were reviewed, which include anesthesia, bleeding, infection, and ureteral injury.
[~2019-05-11 12:56] MED LIST changes: +LEVOFLOXACIN 500MG-D5W PMX 500 MG in DEXTROSE/WATER 1 100ML.BAG IVPB ONE; -MIDAZOLAM (PF) 2 MG/2 ML VIAL IV PRN; +MIDAZOLAM 2 MG/2 ML VIAL IV PRN; -Pre Op ABX Message 1 EACH MISC MISCELLANE ONE; +SCOPOLAMINE 1.5MG/72HR PATCH TRANSDERM ONE; -fentaNYL (PF) 50 MCG/ML 2 ML AMP IV PRN
--- NOTE | 2019-05-11 13:20 | XR ---
KUB HISTORY: Presurgical, left renal calculus KUB on [address] scan dated 05/05/2019 Multiple small calcifications are present within the left kidney lower pole, approximately 7 8 calcif ications are present, largest measures approximately 7 mm. Proximal right ureteral calculus is again noted measuring approximately 8 mm. Right-sided renal calcification is not well seen at the lower xochitl e possibly due to overlying bowel gas. Vascular calcifications are noted over the pelvis. IMPRESSION: Left and right nephrolithiasis. Proximal right ureteral calculus.
[2019-05-11] MEDS ORDERED: MIDAZOLAM 2 MG/2 ML VIAL ONE (14:55)
[2019-05-11] MEDS ORDERED: fentaNYL (PF) 50 MCG/ML 2 ML AMP ONE (14:55)
[2019-05-11] MEDS ORDERED: ROCURONIUM BROMIDE 10 MG/ML 10 ML VIAL IV ONE (14:55)
[2019-05-11] MEDS ORDERED: SUCCINYLCHOLINE CHLORIDE 100 MG/5 ML SYR IV ONE (14:55)
[2019-05-11] MEDS ORDERED: PROPOFOL 10 MG/ML 20 ML VIAL IV ONE (14:55)
[2019-05-11] MEDS ORDERED: NEOSTIGMINE 1 MG/ML 10 ML VIAL ONE (14:55)
[2019-05-11] MEDS ORDERED: PHENYLEPHRINE-0.9% NACL SYG 1 MG/10 ML SYRINGE ONE (14:55)
[2019-05-11] MEDS ORDERED: GLYCOPYRROLATE 0.2 MG/ML 2 ML VIAL ONE (14:55)
[2019-05-11] MEDS ORDERED: LACTATED RINGERS 1,000 ML IV ONE ×5 (16:27→21:21)
--- NOTE | 2019-05-11 17:13 | P.OP ---
Date of Procedure: 05/11/19 Preoperative Diagnosis: Right ureteral calculus, left renal calculi Postoperative Diagnosis: Same Procedure(s) Performed: Cystoscopy, bilateral ureteroscopy with Holmium laser lithotripsy, bilateral ureteral stent insertion Anesthesia: MARS Surgeon: Fausto Pompa Estimated Blood Loss (ml): 20 IV fluids (ml): 700 Pathology: none sent Condition: stable Disposition: PACU Indications for Procedure: The patient is a 79-year-old white male with a history of urolithiasis. He underwent right ESWL in 2016, which was successful. He presented early this year with left flank discomfort, and a KUB x-ray showed an 11 x 29 mm left lower pole renal calculus. Alternative treatment options were reviewed, and he chose to undergo ESWL. This was performed on 3 occasions. The calculus fragmented incompletely, and he has some LLP residual calculus fragments. He now presents with right renal colic and was found to have a 6.5 mm right proximal ureteral calculus. He now comes for bilateral ureteroscopy with Holmium laser lithotripsy and stent insertion. Operative Findings: Right proximal ureteral calculus. Several left renal calculi. All fragmented completely. Description of Procedure: The patient was taken to the operating room and placed in the dorsolithotomy position, with legs supported in Lul stirrups. The external genitalia was prepped and draped sterilely. The 30 lens was used to introduce the 22-Nepalese Stortz cystoscopic sheath through the urethra and into the bladder under direct vision. The prostatic urethra showed evidence of trilobar enlargement, visually occluded. The bladder was examined in its entirety. Both ureteral orifices were normal anatomic location and configuration, and clear urine effluxed from both. No tumors or foreign bodies were seen. A 0.038 inch Glidewire was passed through the cystoscope. The right ureteral orifice was cannulated, and the Glidewire was advanced beyond the right proximal ureteral calculus and into the right renal pelvis. The cystoscope was removed, and an 11/13-Nepalese ureteral access catheter was passed over the wire, up to the mid ureter. The mini flexible ureteroscope was passed through the ureteral access catheter sheath and advanced under direct vision, up to the calculus. The 200 micron Holmium laser probe was passed through the ureteroscope, and lithotripsy was performed until there were no residual calculus fragments exceeding 1-2 mm in size. The ureteral access catheter was removed, and was placed on the left side in an identical fashion. Several calculi were seen within the left intrarenal collecting system, measuring up to 5 mm in size. These were primarily located within the upper and lower pole calyces. The calculus was fragmented completely. The ureteroscope was then removed along with the ureteral access catheter sheath. The cystoscope was replaced into the bladder. The Glidewire was passed through the cystoscope. The left ureteral orifice was cannulated, and the Glidewire was advanced up to the left renal pelvis. A 26 cm, 4.8-Nepalese double-J ureteral stent was placed over the wire. Proper stent positioning was verified fluoroscopically and endoscopically. The same was repeated on the right side. The bladder was emptied and the cystoscope removed. The patient tolerated the procedure well and was taken to the recovery room in stable condition. [facility] [place] Report: Procedure Acuity: Semi-Urgent Stone Size and Location: 7 mm, right proximal ureter. Several left renal calculi up to 5 mm in size. Ureteral Dilation: No Ureteral Access Sheath Used: Yes Stone Sent for Analysis: No All Stones/Fragments Were Removed with a Basket: No Complications: No Preoperative Antibiotics Given: Yes Stent Placed: Yes If Stent Placed, Was String Left Attached: No If Stent Placed, When is it to be Removed: 1 week Discharge Medications: None
[2019-05-11] MEDS: HYDROmorphone 0.5 MG/0.5 ML SYRINGE IVP PRN ×4 (17:25→17:55)
[2019-05-11 17:56] VITALS: TEMP 97.2
[2019-05-11] MEDS ORDERED: MEPERIDINE 50 MG/ML SYRINGE IVP ONE (18:05)
[2019-05-11] MEDS ORDERED: TAMSULOSIN 0.4 MG CAP.ER.24H PO ONE (19:00)
[2019-05-11 19:06] VITALS: RESP 18
[2019-05-11] MEDS ORDERED: KETOROLAC 30 MG/ML 1 ML VIAL IVP ONE (19:20)
[2019-05-11 21:25] VITALS: BP 132/81; PULSE 69
--- NOTE | 2019-05-12 10:01 | FL ---
Fluoroscopy INDICATION: Bilateral stent placement FINDINGS: Fluoroscopy time: 1 minute 1 seconds. Images obtained: 4. IMPRESSIONS: 1. Documentation of fluoroscopy.
== END 2019-05-11 22:57 | disposition home or self-care (01) ==
LOC: OR 12:56
PROVIDERS: ATTEND Urology
DX: N20.2 Calculus of kidney with calculus of ureter (principal); I10 Essential (primary) hypertension; E78.5 Hyperlipidemia, unspecified; M19.90 Unspecified osteoarthritis, unspecified site; H91.90 Unspecified hearing loss, unspecified ear; H35.30 Unspecified macular degeneration; Z87.442 Personal history of urinary calculi; Z87.891 Personal history of nicotine dependence; Z85.828 Personal history of other malignant neoplasm of skin; Z79.82 Long term (current) use of aspirin; Z79.899 Other long term (current) drug therapy; Z88.0 Allergy status to penicillin; Z96.651 Presence of right artificial knee joint; Z95.0 Presence of cardiac pacemaker; Z98.890 Other specified postprocedural states; Z80.9 Family history of malignant neoplasm, unspecified
CPT/HCPCS: 52356; 74018; C2625; C1769; J2250; J1100; J2710; J2175; J2405; J1956; J3010; J1885; J2370; J0330; J2704; J1170

== ENCOUNTER → 2019-06-19 | Outpatient (CLI) | payer MEDICARE ==
--- NOTE | 2019-06-19 10:55 | US ---
EXAMINATION TYPE: US kidneys/renal and bladder DATE OF EXAM: 06/19/2019 COMPARISON: NONE CLINICAL HISTORY: N20.0 calculus of kidney, N20.1 calculus of ureter. EXAM MEASUREMENTS: Right Kidney: 9.9 x 5.5 x 4.4 cm Left Kidney: 10.4 x 5.4 x 4.7 cm Right Kidney: 1.2 x 1.4 x 1.1cm, probable small stone seen inferior Left Kidney: multiple echogenic foci noted, largest measuring 0.6 x 0.3 x 0.6cm Bladder: wnl IMPRESSION: 1. Nonobstructing renal stones.
--- NOTE | 2019-06-19 11:14 | XR ---
EXAMINATION TYPE: XR KUB DATE OF EXAM: 06/19/2019 COMPARISON: 05/11/2019 HISTORY: Left renal calculi TECHNIQUE: One view abdominal series FINDINGS: The osseous structures are intact. The bowel gas pattern is nonspecific. Generative changes spine an d arthropathy of the hips. Left kidney: There are approximately 12 calcifications within the left kidney which appears stable. T he largest measures 9 mm and appears to be in the region of the left UPJ and may have migrated a coup le centimeters relative to the prior exam. 2 calcifications in the left upper pelvis are stable measuring 3 mm or less and nonspecific. Right kidney: No suspicious calculi overlying the right kidney. Bowel content does limit its assessme nt.. IMPRESSION: 1. Stable left renal calculi the largest measuring 9 mm in the region of the left renal pelvis. 2. Previous seen noted calcification in the region of the right ureter is not seen on today's exam. N o definite calcifications are seen overlying the right renal outline.
== END | disposition home or self-care (01) ==
LOC: RADUSWWP 10:04
PROVIDERS: ATTEND Urology
DX: N20.0 Calculus of kidney (principal)
CPT/HCPCS: 74018; 76770

== ENCOUNTER → 2020-02-22 | Outpatient (CLI) | payer MEDICARE ==
--- NOTE | 2020-02-22 09:04 | US ---
EXAMINATION TYPE: US carotid duplex BILAT DATE OF EXAM: 02/22/2020 COMPARISON: NONE CLINICAL HISTORY: R55 Syncope and Collapse. Patient states passing out in January. No hx TIA. EXAM MEASUREMENTS: RIGHT: Peak Systolic Velocity (PSV) cm/sec ----- Right CCA: 96.5 ----- Right ICA: 76.3 ----- Right ECA: 118.0 ICA/CCA ratio: 0.8 RIGHT: End Diastole cm/sec ----- Right CCA: 34.7 ----- Right ICA: 36.0 ----- Right ECA: 28.4 LEFT: Peak Systolic Velocity (PSV) cm/sec ----- Left CCA: 110 ----- Left ICA: 61.0 ----- Left ECA: 72.0 ICA/CCA ratio: 0.7 LEFT: End Diastole cm/sec ----- Left CCA: 39.8 ----- Left ICA: 31.7 ----- Left ECA: 10.8 VERTEBRALS (direction of flow): Right Vertebral: Antegrade Left Vertebral: Antegrade Rhythm: Normal Fairly moderate plaque identified on grayscale images but the velocity measurements and ratios in the internal carotid arteries are within normal limits. IMPRESSION: Moderate bilateral plaque without hemodynamically significant stenosis in either interna l carotid artery. Criteria for Assigning % of Stenosis / Diameter reduction (Estimation based on the indirect measurements of the internal carotid artery velocities (ICA PSV). 1. Normal (no stenosis)=ICA PSV < 125 cm/s: ratio < 2.0: ICA EDV<40 cm/s. 2. Less than 50% stenosis=ICA PSV < 125 cm/s: ratio < 2.0: ICA EDV<40 cm/s. 3. 50 to 69% stenosis=ICA PSV of 125 to 230 cm/s: ration 2.0 ? 4.0: ICA EDV 40-100 cm/s. 4. Greater than 70% stenosis to near occlusion= ICA PSV > 230 cm/s: ratio > 4.0: ICA EDV > 100 cm/s. 5. Near occlusion= ICA PSV velocities may be low or undetectable: variable ratio and ICA EDV. 6. Total occlusion=unable to detect flow.
--- NOTE | 2020-02-22 09:26 | CT ---
EXAMINATION TYPE: CT brain wo con DATE OF EXAM: 02/22/2020 HISTORY: migraines x 3 months, dizziness, one fainting spell CT DLP: 1072.3 mGycm. Automated Exposure Control for Dose Reduction was Utilized. TECHNIQUE: CT scan of the head is performed without contrast. COMPARISON: None. FINDINGS: There is no acute intracranial hemorrhage or midline shift identified. There is diffuse v entricular and sulcal prominence consistent with diffuse cerebral atrophy greatest over the bilateral high frontal and parietal lobes. There is low-attenuation in the periventricular white matter consi stent with chronic small vessel ischemic change. Some bilateral basal ganglia calcifications inciden tally seen. Right globe scleral calcification is present. Paranasal sinuses are clear. Nasal septal d eviation incidentally noted. IMPRESSION: No acute intracranial hemorrhage or midline shift. There is mild to moderate diffuse ce rebral atrophy greatest over frontal and parietal lobes and mild chronic small vessel ischemic change noted.
== END | disposition home or self-care (01) ==
LOC: RADUSWWP 08:11
PROVIDERS: ATTEND Family Medicine
DX: I65.29 Occlusion and stenosis of unspecified carotid artery (principal); G31.9 Degenerative disease of nervous system, unspecified; I67.82 Cerebral ischemia
CPT/HCPCS: 70450; 93880

== ENCOUNTER → 2020-02-26 | Outpatient (CLI) | payer MEDICARE | END | disposition home or self-care (01) | LOC: RADECHMAIN 12:03 | PROVIDERS: ATTEND Family Medicine | DX: R55 Syncope and collapse (principal) | CPT/HCPCS: 93225; 93226 ==

== ENCOUNTER → 2020-08-22 | Outpatient (CLI) | payer MEDICARE ==
--- NOTE | 2020-08-22 15:19 | XR ---
KUB HISTORY: N 20.0 Frontal KUB and 2 images correlated prior exam 06/19/2019 Multiple calcifications superimposed over the lower pole the left kidney are again noted. There is ov erlying bowel gas which may be obscuring detail. Possible calcification superimposed over the lower p ole the right kidney. Lung bases are clear. Intracardiac leads in place. Multiple calcifications are present within the pelvis similar to prior exam. Degenerative disc changes are present visualized spi ne and there is a spinal curvature. There may be injection granuloma of the left gluteal region. IMPRESSION: Nephrolithiasis and additional findings above.
== END | disposition home or self-care (01) ==
LOC: RADXRMAIN 11:16
PROVIDERS: ATTEND Urology
DX: N20.0 Calculus of kidney (principal)
CPT/HCPCS: 74018

== ENCOUNTER → 2021-08-20 | Outpatient (CLI) | payer MEDICARE ==
--- NOTE | 2021-08-20 13:47 | XR ---
EXAMINATION TYPE: XR KUB DATE OF EXAM: 08/20/2021 COMPARISON: 08/22/2020 HISTORY: Pain with kidney stones TECHNIQUE: One view abdominal series FINDINGS: Hypertrophic and degenerative changes of the spine. Arthropathy of the hips. Bowel gas pattern nonspe cific. Assessment of the renal outline is limited due to overlying bowel content. Left kidney: Approximately 9-10 calcifications are seen overlying the left renal outline the largest measuring 9.5 mm. Right kidney: Severely limited due to overlying bowel content and nondiagnostic. Pelvis: Tiny punctate calcification upper left hemipelvis stable from prior exam. IMPRESSION: 1. Numerous left-sided renal calculi as numbered above stable from prior exam. 2. Nondiagnostic assessment of the right kidney due to overlying bowel content.
== END | disposition home or self-care (01) ==
LOC: RADXRMAIN 13:22
PROVIDERS: ATTEND Urology
DX: N20.0 Calculus of kidney (principal)
CPT/HCPCS: 74018

== ENCOUNTER → 2022-08-23 | Outpatient (CLI) | payer MEDICARE ==
--- NOTE | 2022-08-23 19:56 | XR ---
EXAMINATION TYPE: XR KUB DATE OF EXAM: 08/23/2022 4:32 PM INDICATION: Patient age:Male; 82 years old; Reason for study: N20.0 Calculus of L Kidney. COMPARISON: 06/19/2019, CT abdomen pelvis 05/05/2019. TECHNIQUE: One radiographic view of the abdomen was obtained. FINDINGS: The bowel gas pattern is nonspecific without dilated loops of small or large bowel. There i s no evidence for organomegaly or pneumoperitoneum. The osseous structures are intact. No abnormal calcifications are present. Renal calculi are not definitively visualized on this radiograph. Fecal material and gas are demonstr ated throughout the colon and rectum. Dextroscoliosis apex L2. Cardiac conduction leads partially vi sualized in appropriate position. IMPRESSION: 1. No definitive left renal calculus visualized which is felt to be due to overlying bowel gas. Cons idered low-dose CT renal stone protocol as clinically warranted. 2. Nonspecific bowel gas pattern without radiographic evidence for acute process.
== END | disposition home or self-care (01) ==
LOC: RADXRMAIN 15:37
PROVIDERS: ATTEND Urology
DX: N20.0 Calculus of kidney (principal)
CPT/HCPCS: 74018

== ENCOUNTER 2023-02-11 20:58 | Emergency (ER) | payer MEDICARE ==
[2023-02-11 21:12] VITALS: RESP 18; TEMP 97.6
[2023-02-11] MEDS ORDERED: CLINDAMYCIN 150 MG CAP PO STA (21:25)
--- NOTE | 2023-02-11 21:32 | ED ---
General Adult HPI - General Chief complaint: Skin/Abscess/Foreign Body Stated complaint: Post-Op Complication, infection Time Seen by Provider: 02/11/23 21:19 Source: patient, RN notes reviewed, old records reviewed Mode of arrival: ambulatory Limitations: no limitations - History of Present Illness Initial comments: 83-year-old male presenting for evaluation of warmth and erythema to his pacemaker site. Patient had a replaced pacemaker performed 8 days ago at [facility]. No fever. He states he was on clindamycin after the procedure but these antibiotics have been completed. Over the past 24 hours he noted some increased erythema and warmth. No drainage. No systemic symptoms. - Related Data Home Medications Medication Instructions Recorded Confirmed Aspirin 325 mg PO DAILY 11/02/18 05/11/19 Ezetimibe [Zetia] 5 mg PO HS 11/02/18 05/11/19 Latanoprost/Pf [Latanoprost 0.005% 1 drop BOTH EYES HS 11/02/18 05/11/19 Eye Drop] Bluefield-3 Fatty Acids/Fish Oil [Fish 1 cap PO HS 11/02/18 05/11/19 Oil 1,000 mg Softgel] Propranolol HCl [Inderal LA] 120 mg PO DAILY 11/02/18 05/11/19 Simvastatin [Zocor] 20 mg PO HS 11/02/18 05/11/19 Timolol [Betimol 0.5% Ophth Soln] 1 drop BOTH EYES BID 11/02/18 05/11/19 Vit C/E/Zn/Coppr/Lutein/Zeaxan 1 cap PO BID 11/02/18 05/11/19 [Preservision Areds 2 Softgel] lisinopriL [Zestril] 20 mg PO HS 11/02/18 05/11/19 Multivitamins, Thera [Multivitamin 1 tab PO DAILY 05/05/19 05/11/19 (formulary)] Tamsulosin [Flomax] 0.4 mg PO BID 05/07/19 05/11/19 Previous Rx's Medication Instructions Recorded Hydrocodone/Acetaminophen [[place] 1 - 2 each PO Q4HR PRN #10 tab 05/11/19 5-325] Clindamycin [Cleocin] 450 mg PO TID 7 Days #63 cap 02/11/23 Allergies Allergy/AdvReac Type Severity Reaction Status Date / Time Penicillins Allergy Rash/Hives Verified 02/11/23 21:11 Review of Systems ROS Statement: Those systems with pertinent positive or pertinent negative responses have been documented in the HPI. ROS Other: All systems not noted in ROS Statement are negative. Past Medical History Past Medical History: Cancer, Eye Disorder, Hearing Disorder / Deafness, Hyperlipidemia, Hypertension, Osteoarthritis (OA) Additional Past Medical History / Comment(s): BILATERAL MACULAR DEGENERATION. KIDNEY STONE CURRENTLY AND HX OF X2. HX SKIN CA. HX BRADYCARDIA, HAS PACEMAKER. History of Any Multi-Drug Resistant Organisms: None Reported Past Surgical History: Back Surgery, Joint Replacement, Pacemaker Additional Past Surgical History / Comment(s): TOTAL RIGHT KNEE. LITHOTRIPSY. BIOTRONIC PACEMAKER 2001, 2010. Laminectomy X2. Bilateral knee surgery, skin can cer removed. Past Anesthesia/Blood Transfusion Reactions: No Reported Reaction Type of Cardiac Device: Permanent Pacemaker Device Placement Date:: 2010 Past Psychological History: No Psychological Hx Reported Smoking Status: Never smoker Past Alcohol Use History: None Reported Past Drug Use History: None Reported - Past Family History Father Brother(s) Family Medical History: Cancer Brother(s) Additional Family Medical History / Comment(s): HX BLOOD CLOT, UNSURE WHERE IT WAS. General Exam Limitations: no limitations General appearance: alert, in no apparent distress Head exam: Present: atraumatic, normocephalic Eye exam: Present: normal appearance ENT exam: Present: normal exam Neck exam: Present: normal inspection. Absent: tenderness Respiratory exam: Present: normal lung sounds bilaterally. Absent: respiratory distress Cardiovascular Exam: Present: regular rate, normal rhythm, systolic murmur GI/Abdominal exam: Present: soft. Absent: distended, tenderness Extremities exam: Present: normal inspection Neurological exam: Present: alert, oriented X3. Absent: motor sensory deficit Psychiatric exam: Present: normal affect, normal mood Skin exam: Present: other (Incision is well healed with very minimal erythema, no induration, no fluctuance, no crepitus at the site.) Course Vital Signs 02/11/23 21:08 Temperature 97.6 F Pulse Rate 71 Respiratory 18 Rate Blood Pressure 130/76 O2 Sat by Pulse 97 Oximetry Medical Decision Making - Medical Decision Making Was pt. sent in by a medical professional or institution (, PA, SOLDERING MACHINE OPERATOR, urgent care, hospital, or [place] health care facility...) When possible be specific @ -No Did you speak to anyone other than the patient for history (EMS, parent, family, police, friend...)? What history was obtained from this source @ -No Did you review nursing and triage notes (agree or disagree)? Why? @ -I reviewed and agree with nursing and triage notes Were old charts reviewed (outside hosp., previous admission, EMS record, old EKG, old radiological studies, urgent care reports/EKG's, [place] health care facility records)? Report findings @ -No old charts were reviewed Differential Diagnosis (chest pain, altered mental status, abdominal pain women, abdominal pain men, vaginal bleeding, weakness, fever, dyspnea, syncope, headache, dizziness, GI bleed, back pain, seizure, CVA, palpatations, mental health, musculoskeletal)? @ Skin soft tissue infection, infected pacemaker site EKG interpreted by me (3pts min.). @ -As above X-rays interpreted by me (1pt min.). @ -None done CT interpreted by me (1pt min.). @ -None done U/S interpreted by me (1pt. min.). @ -None done What testing was considered but not performed or refused? (CT, X-rays, U/S, labs)? Why? @ -None What meds were considered but not given or refused? Why? @ -None Did you discuss the management of the patient with other professionals (professionals i.e. , PA, SOLDERING MACHINE OPERATOR, lab, RT, psych nurse, social work coordinator, heating and blending supervisor, teacher, disabilities services officer, case management coordinator)? Give summary @ -No Was smoking cessation discussed for >3mins.? @ -No Was critical care preformed (if so, how long)? @ -No Were there social determinants of health that impacted care today? How? (Homelessness, low income, unemployed, alcoholism, drug addiction, transportation, low edu. Level, literacy, decrease access to med. care, snf, rehab)? @ -No Was there de-escalation of care discussed even if they declined (Discuss DNR or withdrawal of care, Hospice)? DNR status @ -No What co-morbidities impacted this encounter? (DM, HTN, Smoking, COPD, CAD, Cancer, CVA, ARF, Chemo, Hep., AIDS, mental health diagnosis, sleep apnea, morbid obesity)? @ -Pacemaker dependent Was patient admitted / discharged? Hospital course, mention meds given and route, prescriptions, significant lab abnormalities, going to OR and other pertinent info. @ -83-year-old male with concern for infected pacemaker site. Patient indicates that over the past 24 hours and then increased warmth and redness to the area. On my examination this appears to be normal healing there is no signs of significant infection, no drainage, no induration, no fluctuance. Given that this is a holiday weekend and the patient's procedure was done at outside hospital and will initiate antibiotics. The patient is given strict return parameters with concerns for worsening infection. He will follow-up with his finance admin on Tuesday. Undiagnosed new problem with uncertain prognosis? @ -No Drug Therapy requiring intensive monitoring for toxicity (Heparin, Nitro, Insulin, Cardizem)? @ -No Were any procedures done? @ -No Diagnosis/symptom? @ Postoperative healing, early cellulitis Acute, or Chronic, or Acute on Chronic? @ Acute Uncomplicated (without systemic symptoms) or Complicated (systemic symptoms)? @ -default Side effects of treatment? @ -No Exacerbation, Progression, or Severe Exacerbation? @ -No Poses a threat to life or bodily function? How? (Chest pain, [place], [place], pneumonia, PE, COPD, DKA, ARF, appy, cholecystitis, CVA, Diverticulitis, Homicidal, Suicidal, threat to staff... and all critical care pts) @ -[Low risk Disposition Clinical Impression: Cellulitis Disposition: HOME SELF-CARE Condition: Good Instructions (If sedation given, give patient instructions): Cellulitis (ED) Additional Instructions: Please monitor for fever, erythema or drainage at the site. Please return with worsening or changing symptoms. Please follow up with her finance admin on Tuesday. Prescriptions: Clindamycin [Cleocin] 450 mg PO TID 7 Days #63 cap Is patient prescribed a controlled substance at d/c from ED?: No Referrals: Ej Motley DO [Primary Care Provider] - 1-2 days Time of Disposition: 21:29
[2023-02-11 21:48] VITALS: BP 109/72; PULSE 64
== END 2023-02-11 21:48 | disposition home or self-care (01) ==
LOC: EC 20:58
DX: L03.90 Cellulitis, unspecified (principal); I10 Essential (primary) hypertension; Z79.82 Long term (current) use of aspirin; E78.5 Hyperlipidemia, unspecified; M19.90 Unspecified osteoarthritis, unspecified site; Z79.899 Other long term (current) drug therapy; Z88.0 Allergy status to penicillin
CPT/HCPCS: 99283

== ENCOUNTER 2023-09-13 14:23 | Emergency (ER) | payer MEDICARE ==
[2023-09-13 15:24] VITALS: TEMP 97.9
--- NOTE | 2023-09-13 15:34 | ED ---
Skin/Abscess/FB HPI - General Source: patient, RN notes reviewed Mode of arrival: ambulatory <Mary Hussein - Last Filed: 09/13/23 15:34> <Jean Pierre Menard - Last Filed: 09/13/23 21:41> - General Source: patient, RN notes reviewed Mode of arrival: ambulatory Limitations: no limitations <Jeannie Landis - Last Filed: 09/14/23 00:45> - General Chief complaint: Skin/Abscess/Foreign Body Stated complaint: Skin abrasion on chest-sent by urgent care Time Seen by Provider: 09/13/23 15:34 - History of Present Illness Initial comments: Patient is an 83-year-old male presented ER with a chief complaint of a sore. Patient was sent here by urgent care. Patient states his pacemaker incision is draining and has surrounding erythema. Patient denies any fevers, chills, night sweats, chest pain, shortness of breath. (Mary Hussein) This is an 83-year-old male who presents to the emergency department for problems with his pacemaker incision. He had his pacemaker replaced in January of this year at [facility]. This is the third pacemaker he has had. States that around of this year he started to have problems with the incision site. His farmworker general told him that it was a bruise and to put cream on it. Patient has since been putting cream on it, however today it opened up. He went to urgent care, and was instructed to come here for further care. States that he is trying to get an appointment with local cardiologists as opposed to the ones at [facility] to take over his ongoing care. (Jeannie Landis) - Related Data Home Medications Medication Instructions Recorded Confirmed Aspirin 325 mg PO DAILY 11/02/18 09/13/23 Ezetimibe [Zetia] 5 mg PO HS 11/02/18 09/13/23 Latanoprost/Pf [Latanoprost 0.005% 1 drop BOTH EYES HS 11/02/18 09/13/23 Eye Drop] Connelly-3 Fatty Acids/Fish Oil [Fish 1 cap PO DAILY 11/02/18 09/13/23 Oil 1,000 mg Softgel] Propranolol HCl [Inderal LA] 120 mg PO DAILY 11/02/18 09/13/23 Simvastatin [Zocor] 20 mg PO HS 11/02/18 09/13/23 Timolol [Betimol 0.5% Ophth Soln] 1 drop BOTH EYES BID 11/02/18 09/13/23 Vit C/E/Zn/Coppr/Lutein/Zeaxan 1 cap PO BID 11/02/18 09/13/23 [Preservision Areds 2 Softgel] lisinopriL [Zestril] 20 mg PO HS 11/02/18 09/13/23 Celecoxib [CeleBREX] 200 mg PO BID 09/13/23 09/13/23 Cholecalciferol [Vitamin D3 (25 25 mcg PO DAILY 09/13/23 09/13/23 Mcg = 1000 Iu)] Ketoconazole 2% Cream [Nizoral 2%] 1 applic TOPICAL DAILY 09/13/23 09/13/23 Magnesium Oxide [Magnesium] 500 mg PO HS 09/13/23 09/13/23 Vitamin B Complex 1 cap PO DAILY 09/13/23 09/13/23 hydroCHLOROthiazide [Hydrodiuril] 25 mg PO DAILY 09/13/23 09/13/23 Allergies Allergy/AdvReac Type Severity Reaction Status Date / Time Penicillins Allergy Rash/Hives Verified 09/13/23 21:51 Review of Systems ROS Other: All systems not noted in ROS Statement are negative. <Mary Hussein - Last Filed: 09/13/23 15:34> ROS Other: All systems not noted in ROS Statement are negative. <Jean Pierre Menard - Last Filed: 09/13/23 21:41> ROS Other: All systems not noted in ROS Statement are negative. <Jeannie Landis - Last Filed: 09/14/23 00:45> ROS Statement: Those systems with pertinent positive or pertinent negative responses have been documented in the HPI. Past Medical History Past Medical History: Cancer, Eye Disorder, Hearing Disorder / Deafness, Hyperlipidemia, Hypertension, Osteoarthritis (OA) Additional Past Medical History / Comment(s): BILATERAL MACULAR DEGENERATION. KIDNEY STONE CURRENTLY AND HX OF X2. HX SKIN CA. HX BRADYCARDIA, HAS PACEMAKER. History of Any Multi-Drug Resistant Organisms: None Reported Past Surgical History: Back Surgery, Joint Replacement, Pacemaker Additional Past Surgical History / Comment(s): TOTAL RIGHT KNEE. LITHOTRIPSY. BIOTRONIC PACEMAKER 2010. Laminectomy X2. Bilateral knee surgery, skin cancer removed. Past Anesthesia/Blood Transfusion Reactions: No Reported Reaction Type of Cardiac Device: Permanent Pacemaker Device Placement Date:: 2010 Past Psychological History: No Psychological Hx Reported Smoking Status: Never smoker Past Alcohol Use History: None Reported Past Drug Use History: None Reported - Past Family History Father Brother(s) Family Medical History: Cancer Brother(s) Additional Family Medical History / Comment(s): HX BLOOD CLOT, UNSURE WHERE IT WAS. <Mary Hussein - Last Filed: 09/13/23 15:34> General Exam <Mary Hussein - Last Filed: 09/13/23 15:34> Limitations: no limitations General appearance: alert, in no apparent distress Head exam: Present: atraumatic, normocephalic, normal inspection Respiratory exam: Present: normal lung sounds bilaterally. Absent: respiratory distress, wheezes, rales, rhonchi, stridor Cardiovascular Exam: Present: regular rate, normal rhythm, normal heart sounds. Absent: systolic murmur, diastolic murmur, rubs, gallop, clicks Neurological exam: Present: alert, oriented X3, CN II-XII intact Psychiatric exam: Present: normal affect, normal mood Skin exam: Present: other (Pacemaker incision site is open with the corner of the pacemaker visible. No tenderness. No surrounding erythema or drainage.) <Jeannie Landis - Last Filed: 09/14/23 00:45> - General Exam Comments Initial Comments: Visual Physical Exam Vital signs reviewed General: Well-appearing, nontoxic, no acute distress. Head: Normocephalic, atraumatic Eyes: PERRLA, EOMI ENT: Airway patent Chest: Nonlabored breathing Skin: No visual rash, normal skin tone Neuro: Alert and oriented 3 Musculoskeletal: No gross abnormalities (Mary Hussein) Course Vital Signs 09/13/23 09/13/23 15:04 22:31 Temperature 97.9 F 97.9 F Pulse Rate 80 83 Respiratory 18 17 Rate Blood Pressure 108/70 110/71 O2 Sat by Pulse 97 98 Oximetry Medical Decision Making <Mary Hussein - Last Filed: 09/13/23 15:34> - EKG Data -: EKG Interpreted by Me (EKG shows paced NV NV 211 QRS 90 QRS 176 [id number]) <Jean Pierre Menard - Last Filed: 09/13/23 21:41> - Radiology Data Radiology results: report reviewed, image reviewed <CheyAlbert bradyJeannie - Last Filed: 09/14/23 00:45> - Medical Decision Making I performed the quick note portion of the exam. Electronically signed by Mary Hussein PA-C (Mary Hussein) This is an 83-year-old male who presents to the emergency department for problems with his pacemaker incision. Was pt. sent in by a medical professional or institution? @ -No Did you speak to anyone other than the patient for history? @ -No Did you review nursing and triage notes? @ -Yes, and I agree, it is accurate with regards to the patient's symptoms. Were old charts reviewed? @ -No Differential Diagnosis? @ -Not applicable EKG interpreted by me (3pts min.)? @ -EKG interpreted by me demonstrating the following: Electronic atrial pacemaker. Electronic ventricular pacemaker. Ventricular rate 63 bpm, NV interval 211 ms, QRS duration 176 ms, QTC 471 ms. X-rays interpreted by me (1pt min.)? @ -Not obtained CT interpreted by me (1pt min.)? @ -Not obtained U/S interpreted by me (1pt. min.)? @ -Not obtained What testing was considered but not performed? (CT, X-rays, U/S, labs)? Why? @ -None What meds were considered but not given? Why? @ -None Did you discuss the management of the patient with other professionals? @ -Dr. Menard, ED attending, discussed the case with Dr. Alvarado, cardiology, who refused admission and advised having him go back to [facility]. Did you reconcile home meds? @ -No Was smoking cessation discussed for >3mins.? @ -No Was critical care preformed (if so, how long)? @ -No Were there social determinants of health that impacted care today? How? (Homelessness, low income, unemployed, alcoholism, drug addiction, transportation, low edu. Level, literacy, decrease access to med. care, fci, rehab)? @ -No Was there de-escalation of care discussed even if they declined? (Discuss DNR or withdrawal of care, Hospice)? @ -No What co-morbidities impacted this encounter? (DM, HTN, Smoking, COPD, CAD, Cancer, CVA, Hep., AIDS, mental health diagnosis, sleep apnea, morbid obesity)? @ -Bradycardia Was patient admitted / discharged? @ -Discharged. On physical examination, the patient's pacemaker incision was open and the corner of this was visible. There was no evidence of surrounding infection. We had planned on admitting the patient for cardiology to manage the situation in the morning. However, ED attending Dr. Menard discussed the case with cardiology, who advised that the patient follow back up with his farmworker general. We did discuss with them that the patient does not want to follow back up with [facility] and he is scheduled to be seen in their office in the next couple of weeks, however they continued to refuse the admission. Dr. Menard discussed this with the patient and his as well. Given that this has been a progressive issue since July, he does not need to be transferred to [facility] on an emergent basis. We did advise he contact his farmworker general office first thing tomorrow morning or present to the emergency department to have this problem fixed. Patient started on Keflex for infectious prophylaxis. Undiagnosed new problem with uncertain prognosis? @ -None Drug Therapy requiring intensive monitoring for toxicity (Heparin, Nitro, Insulin, Cardizem)? @ -None Were any procedures done? @ -None Diagnosis/symptom? @ -Dehiscence of the incision Acute, or Chronic, or Acute on Chronic? @ -Acute Uncomplicated (without systemic symptoms) or Complicated (systemic symptoms)? @ -Uncomplicated Side effects of treatment? @ -None Exacerbation, Progression, or Severe Exacerbation] @ -Not applicable Poses a threat to life or bodily function? @ -If it continues to open up even further, it can become problematic. Return precautions reviewed in depth, the patient is instructed to return to the emergency department with any new, worsening, or concerning symptoms. Patient verbalized understanding. This case was discussed in detail with the attending ED physician, Dr. Menard. Presentation, findings, and treatment plan discussed in detail as well. (Jeannie Landis) Disposition <Mary Hussein - Last Filed: 09/13/23 15:34> <Jean Pierre Menard - Last Filed: 09/13/23 21:41> Is patient prescribed a controlled substance at d/c from ED?: No <Jeannie Landis - Last Filed: 09/14/23 00:45> Clinical Impression: Dehiscence of incision, S/P placement of cardiac pacemaker Disposition: HOME SELF-CARE Additional Instructions: Return to the emergency department with any new, worsening, or concerning symptoms. Follow up with your farmworker general. Referrals: Ej Motley DO [Primary Care Provider] - 1-2 days
[2023-09-13] MEDS ORDERED: CEPHALEXIN 500 MG CAP PO STA (22:04)
[2023-09-13] MEDS ORDERED: CEPHALEXIN 500MG STARTER PACK 4 CAP BTL PO STA (22:07)
[2023-09-13 22:51] VITALS: BP 110/71; PULSE 83; RESP 17
== END 2023-09-13 22:25 | disposition home or self-care (01) ==
LOC: EC 14:23
DX: T81.31XA Disruption of external operation (surgical) wound, not elsewhere classified, initial encounter (principal); I10 Essential (primary) hypertension; E78.5 Hyperlipidemia, unspecified; M19.90 Unspecified osteoarthritis, unspecified site; Z79.82 Long term (current) use of aspirin; Z79.899 Other long term (current) drug therapy; Z88.0 Allergy status to penicillin; Z95.0 Presence of cardiac pacemaker
CPT/HCPCS: 93005; 99283

== ENCOUNTER → 2023-10-20 | Outpatient (CLI) | payer MEDICARE ==
--- NOTE | 2023-10-20 12:18 | XR ---
EXAMINATION TYPE: XR KUB DATE OF EXAM: 10/20/2023 11:42 AM CLINICAL INDICATION:Male, 83 years old with history of N20.0 CALCULUS OF KIDNEY; [facility] COMPARISON: Dating back to 08/20/2021. TECHNIQUE: One radiographic view of the abdomen was obtained. FINDINGS: The bowel gas pattern is nonspecific without dilated loops of small or large bowel. There i s no evidence for organomegaly or pneumoperitoneum. The osseous structures are intact. Fecal materi al and gas are demonstrated throughout the colon and rectum. Multilevel degeneration changes of the spine with sclerosis change. Left calcification projecting over the kidney measuring 9 mm unchanged f rom 08/20/2021. IMPRESSION: 1. Left renal calculus measuring up to 9 mm. In similar position to priors dating back to at least 1 10/21/2020. 2. Nonspecific bowel gas pattern without radiographic evidence for acute process.
== END | disposition home or self-care (01) ==
LOC: RADXRMAIN 11:28
PROVIDERS: ATTEND Urology
DX: N20.0 Calculus of kidney (principal); Z87.442 Personal history of urinary calculi
CPT/HCPCS: 74018

== ENCOUNTER → 2024-03-15 | Outpatient (CLI) | payer MEDICARE ==
[2024-03-15 15:32] LABS: African American GFR (CKD) >90 (>60 ml/min/1.73 sqM); Blood Urea Nitrogen 19 mg/dL (9-20); Non-African American GFR(CKD) 78 (>60 ml/min/1.73 sqM)
--- NOTE | 2024-03-16 23:23 | CT ---
EXAMINATION TYPE: CT chest w con CT DLP: 626 mGycm, Automated exposure control for dose reduction was used. DATE OF EXAM: 03/15/2024 4:27 PM COMPARISON: No prior scans of the chest are available for review. CT abdomen and pelvis 05/05/2019 CLINICAL INDICATION:Male, 84 years old with history of R91.1 SOLITARY NODULE; [facility], SOLITARY NODULE TECHNIQUE: Multiple axial images were obtained through the chest following the administration of 100 cc of Isovue 300. . Coronal and sagittal reformats reviewed. FINDINGS: LUNGS/ PLEURA: No pleural effusion, pneumothorax, or focal consolidation. Bibasilar subsegmental atel ectasis. Right lower lobe 2 mm pulmonary nodule (series 4, image 37). AIRWAY: Patent and unremarkable.. HEART: Size within normal limits. No pericardial effusion. Suspected postsurgical changes involving t he pulmonary valve. MEDIASTINUM: No gross evidence of adenopathy. VASCULATURE: Aneurysm dilatation of the ascending thoracic aorta measuring up to 4.4 cm. This does n ot extend into the descending aorta. Conventional three-vessel aortic arch. Mild to moderate coronary arterial calcifications. MUSCULOSKELETAL: No acute osseous abnormalities SOFT TISSUES/LYMPH NODES: Unremarkable. LOWER NECK: No significant findings. UPPER ABDOMEN: 3 nonobstructive calculi identified within the visualized left kidney with largest sto ne measuring up to 3 mm. Partial visualization of right renal cyst measuring up to 2.6 cm. Pancreatic head 1.5 cm hypodense lesion (series 3, image 68). Not definitively visualized on prior CT. IMPRESSION: 1. Right lower lobe 2 mm pulmonary nodule. 2. Ascending thoracic aortic aneurysm measuring up to 4.4 cm. 3. Nonobstructive left renal calculi. 4. Indeterminate 1.5 cm hypodense lesion within the pancreatic head. Further evaluation with CT or MR abdomen pancreatic mass protocol is recommended.
== END | disposition home or self-care (01) ==
LOC: RADCTMAIN 14:41
PROVIDERS: ATTEND Family Medicine
DX: R91.1 Solitary pulmonary nodule (principal); I71.21 Aneurysm of the ascending aorta, without rupture; N20.0 Calculus of kidney
CPT/HCPCS: 82565; 84520; 71260; 36415; Q9967

== ENCOUNTER → 2024-03-30 | Outpatient (CLI) | payer MEDICARE ==
[2024-03-30 13:13] LABS: African American GFR (CKD) 82 (>60 ml/min/1.73 sqM); Blood Urea Nitrogen 22 mg/dL (9-20); Non-African American GFR(CKD) 71 (>60 ml/min/1.73 sqM)
--- NOTE | 2024-03-30 15:38 | CT ---
EXAMINATION TYPE: CT abdomen w con CT DLP: 407.9 mGycm, Automated exposure control for dose reduction was used. 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 TECHNIQUE: Axial CT abdomen w con;Sagittal and coronal reformats were created on a separate workstat ion. Contrast used:100 ml mL of Isovue 300 with IV Contrast, (none if empty) Oral contrast used: with Oral Contrast (none if empty) FINDINGS: LOWER CHEST: Atherosclerotic calcifications of the coronary arteries and aortic valve. ABDOMEN LIVER: Unremarkable GALLBLADDER AND BILE DUCTS: Unremarkable. PANCREAS: Unremarkable. Hypoenhancing area within the pancreatic /head measuring 12 x 10 mm. This fin ding is thought to been present on prior. The main pancreatic duct is not dilated. SPLEEN: Unremarkable. ADRENAL GLANDS: Unremarkable. KIDNEYS AND URETERS: No evidence of hydronephrosis or renal calculus. The ureters are unremarkable. Simple appearing right renal cyst. e nonobstructing bilateral renal calculi measuring up to 8 mm on the right and 5 mm on the left. PELVIS BLADDER: Unremarkable REPRODUCTIVE: Unremarkable. ABDOMEN & PELVIS STOMACH AND BOWEL: No evidence of bowel obstruction. PERITONEUM/RETROPERITONEUM: No evidence of pneumoperitoneum or free fluid. VASCULATURE: No evidence of aortic aneurysm. MUSCULOSKELETAL: No acute osseous abnormalities. Moderate disc degeneration changes are present throu ghout the thoracolumbar spine. LYMPH NODES: No gross evidence for lymphadenopathy. SOFT TISSUE/ABDOMINAL WALL: Unremarkable IMPRESSION: 1. Low attenuating area within the pancreatic head/uncinate process possibly representing dilated si de branches versus pancreatic cystic neoplasm such as side branch intraductal papillary mucinous neop lasm versus sequela of prior pancreatitis. This is thought to been present 2018 and likely benign. No lymphadenopathy or other evidence of mass. 2. Nonobstructing bilateral renal calculi. 3. Right simple appearing renal cysts.
== END | disposition home or self-care (01) ==
LOC: RADCTMAIN 12:26
PROVIDERS: ATTEND Family Medicine
DX: K86.89 Other specified diseases of pancreas (principal); N20.0 Calculus of kidney; N28.1 Cyst of kidney, acquired
CPT/HCPCS: 82565; 84520; 74160; 36415; Q9967

== ENCOUNTER → 2024-12-18 | Outpatient (CLI) | payer MEDICARE ==
--- NOTE | 2024-12-19 12:49 | XR ---
EXAMINATION TYPE: XR KUB DATE OF EXAM: 12/18/2024 2:14 PM COMPARISON: 10/20/2023. CLINICAL INDICATION: Male, 84 years old with history of N20.0 CALCULUS OF KIDNEY; [facility] TECHNIQUE: One radiographic view of the abdomen was obtained. FINDINGS: The bowel gas pattern is nonspecific without dilated loops of small or large bowel. . Fecal material and gas are demonstrated throughout the colon and rectum. There is no evidence for organome jeremiah or pneumoperitoneum. Degeneration changes of the spine. No acute osseous process. Bilateral re nal calculi measuring up to 5 mm on the right and 8 mm on the left. IMPRESSION: 1. Bilateral renal calculi. No significant change from priors. 2. Nonspecific bowel gas pattern without radiographic evidence for acute process. [facility], , 12/19/2024 12:47 PM
== END | disposition home or self-care (01) ==
LOC: RADXRMAIN 14:04
PROVIDERS: ATTEND Urology
DX: N20.0 Calculus of kidney (principal)
CPT/HCPCS: 74018

== ENCOUNTER → 2025-04-09 | Outpatient (CLI) | payer MEDICARE ==
--- NOTE | 2025-04-09 16:14 | US ---
EXAMINATION TYPE: US venous doppler duplex LE LT DATE OF EXAM: 04/09/2025 1:36 PM COMPARISON: NONE CLINICAL INDICATION: Male, 85 years old with history of R60.0 LOCALIZED EDEMA; Left leg edema x 6 mon ths, pain on and off, no hx of DVT, currently taking aspirin daily TECHNIQUE: The lower extremity deep venous system is examined utilizing real time linear array sonog ubaldo with graded compression, doppler sonography and color-flow sonography. Grayscale, color doppler , spectral doppler imaging performed of the deep veins of the lower extremities FINDINGS: SIDE PERFORMED: Left VESSELS IMAGED: Common Femoral Vein Deep Femoral Vein Greater Saphenous Vein * Femoral Vein Popliteal Vein Small Saphenous Vein * Proximal Calf Veins (* superficial vessels) Left Leg: appears negative for DVT; There is normal flow, compressibility, vascular waveforms. [employer] Preparer notes: Left posterior calf area of swelling/pain scanned: no evidence of DVT where scanne d, no obvious abnormalities seen IMPRESSION: No DVT identified within the left lower extremity with particular attention to the posterior calf at the site of pain and swelling. [facility], , 04/09/2025 4:12 PM
== END | disposition home or self-care (01) ==
LOC: RADUSWWP 13:14
PROVIDERS: ATTEND Family Medicine
DX: R60.0 Localized edema (principal)